=== PATIENT | male | born 1970 | race Hispanic/Latino ===

== ENCOUNTER → 2024-07-03 | Day surgery (SDC) | payer OTHER ==
[~2024-07-03] MED LIST: HYOSCYAMINE SULFATE 0.5 MG/ML INJ ONE; LIDOCAINE HCL 2% LOCAL INJ 5 ML SDV VIAL INJ ONE; OMEPRAZOLE40 MG PO; PROPOFOL IV EMULSION 10 MG/ML 20 ML VIAL ONE; PROPOFOL IV EMULSION 50 ML IV ONE; SIMVASTATIN40 MG PO; ULTRAM 50MG50 MG PO; ZESTRIL10 MG PO
[2024-07-03] MEDS: LACTATED RINGER'S 1,000 ML ONE (11:31)
[2024-07-03 13:35] VITALS: BP 140/97; PULSE 70; RESP 17; TEMP 97.3; O2SAT 98
== END | disposition home or self-care (01) ==
LOC: OR 10:54
PROVIDERS: ATTEND Internal Medicine Gastroenterology
DX: K59.09 Other constipation (principal); K63.5 Polyp of colon; K62.1 Rectal polyp; K57.30 Diverticulosis of large intestine without perforation or abscess without bleeding; K64.8 Other hemorrhoids; K21.9 Gastro-esophageal reflux disease without esophagitis; Z71.3 Dietary counseling and surveillance; I10 Essential (primary) hypertension; Z71.89 Other specified counseling; E78.5 Hyperlipidemia, unspecified; E66.01 Morbid (severe) obesity due to excess calories; M06.9 Rheumatoid arthritis, unspecified; Z01.810 Encounter for preprocedural cardiovascular examination; Z79.899 Other long term (current) drug therapy; Z79.1 Long term (current) use of non-steroidal anti-inflammatories (NSAID); Z68.36 Body mass index [BMI] 36.0-36.9, adult
CPT/HCPCS: 45385; 93005; J2003; J2704; J7121; 45378; J1980